=== PATIENT | female | born 1935 | race Caucasian/White ===

== ENCOUNTER 2016-10-03 20:16 | Emergency (ER) | payer MEDICARE, OTHER ==
[2016-10-03] MEDS ORDERED: Adacel (T-DAP) 0.5 ML VIAL ONE (20:30)
--- NOTE | 2016-10-04 00:32 | RAD ---
RIGHT WRIST THREE VIEWS 10/03/2016 No fracture was demonstrated. The carpal bones all appeared intact, and the carpal relations are no rmal. Degenerative changes are noted in the first carpometacarpal joint. The metacarpals themselve s appear intact. IMPRESSION: No acute bony finding. POS: HOME
--- NOTE | 2016-10-04 00:35 | CT ---
PRELIMINARY REPORT/[facility]/EMERGENCY AFTER HOURS PROCEDURE: EXAM: CT Head Without Intravenous Contrast CLINICAL HISTORY: 81 years old, female; Injury or trauma; Fall; Initial encounter; Blunt trauma (contusions or hematom as); Consciousness not specified; Injury date: 10/03/16; Injury details: Pt fell and hit face on the s adrien of the curb. ; Patient HX: Pt fell and hit face on the side of the curb. Large hematoma on the r ight eye and small lac above right eye area. TECHNIQUE: Axial computed tomography images of the head/brain without intravenous contrast. COMPARISON: No relevant prior studies available. FINDINGS: Brain: No intracranial hemorrhage. No CT evidence of acute ischemia. Ventricles: No ventriculomegaly. The subarachnoid cisterns and extar-axial CSF spaces are unremarkab le. Bones/joints: Unremarkable. No acute fracture. Soft tissues: Large RIGHT periorbital and frontal soft tissue contusion. Small foci of soft tissue g as. Sinuses: No acute sinusitis. Mastoid air cells: No mastoid effusion. IMPRESSION: No acute intracranial findings Thank you for allowing us to participate in the care of your patient. Dictated and Authenticated by: Jeramie Lazo MD 10/03/2016 8:57 PM Central Time ([place] \T\ [place]) FINAL REPORT CT OF THE BRAIN WITHOUT CONTRAST 10/03/2016 A non-contrast CT was performed. The ventricles are normal in size for age and show no shift. No i ntracranial bleeding or extraaxial hematoma was present. A soft tissue hematoma is seen over the ri ght orbit and just above it. No fractures were demonstrated. The visible paranasal sinuses are case ar. IMPRESSION: No acute intracranial findings. Report in agreement with the preliminary reading by Jonny. POS: HOME
== END 2016-10-03 21:03 | disposition home or self-care (01) ==
LOC: BURERS 20:16
DX: S01.81XA Laceration without foreign body of other part of head, initial encounter (principal); E11.9 Type 2 diabetes mellitus without complications; I10 Essential (primary) hypertension; W18.30XA Fall on same level, unspecified, initial encounter
CPT/HCPCS: 70450; 90471; 90715